=== PATIENT | female | born 2000 | race African-American/Black ===

== ENCOUNTER 2024-09-27 20:25 | Emergency (ER) | payer MEDICAID ==
[~2024-09-27] VITALS: Ht 157.5 cm; Wt 79.0 kg
[2024-09-27 20:39] VITALS: O2SAT 99
[2024-09-27 20:43] VITALS: BP 119/65; PULSE 60; RESP 14; TEMP 36.7; O2SAT 99
[2024-09-28] MEDS ORDERED: FLUC100T PO (16:22)
[2024-09-28] MEDS ORDERED: DOXY100C74 MT (16:25)
== END 2024-09-27 23:33 | disposition left against medical advice (07) ==
LOC: ER 20:33
DX: Z53.21 Procedure and treatment not carried out due to patient leaving prior to being seen by health care provider (principal)

== ENCOUNTER 2024-09-28 13:07 | Emergency (ER) | payer MEDICAID ==
[~2024-09-28] VITALS: Ht 157.5 cm; Wt 79.0 kg
[2024-09-28 13:09] VITALS: PULSE 99; O2SAT 100
[2024-09-28 13:12] VITALS: BP 122/86; RESP 18; TEMP 36.4; O2SAT 99
[2024-09-28] MEDS: CEFTRIAXONE SODIUM 500MG VIAL IM ONE (15:47)
[2024-09-28 15:51] LABS: CLARITY URINE CLEAR (CLEAR); COLOR URINE YELLOW (YELLOW); GLUCOSE URINE NEGATIVE (NEGATIVE); KETONES URINE NEGATIVE (NEGATIVE); LEUKOCYTE ESTERASE URINE 1+ (NEGATIVE); NITRITE URINE NEGATIVE (NEGATIVE); OCCULT BLOOD URINE NEGATIVE (NEGATIVE); PH URINE 5.5 (4.5-8.0); PROTEIN URINE NEGATIVE (NEGATIVE); UROBILINOGEN URINE 0.2 E.U./dL (0.2-1.0)
[2024-09-28] MEDS: DOXYCYCLINE HYCLATE 100MG CAPSULE PO ONE (15:56)
[2024-09-28 16:14] LABS: BACTERIA URINE 1+; RBC URINE 0-2 /hpf (0-2); SQUAMOUS EPITHELIAL CELL URINE 2+ /lpf (RARE/1+); YEAST URINE NONE SEEN
[2024-09-28] MEDS ORDERED: FLUC100T PO (16:22)
[2024-09-28] MEDS ORDERED: DOXY100C74 MT (16:25)
[2024-10-01 04:07] LABS: CHLAMYDIA TRACHOMATIS NAA Negative (Negative); NEISSERIA GONORRHOEAE NAA Negative (Negative)
== END 2024-09-28 17:13 | disposition home or self-care (01) ==
LOC: ER 13:07
DX: N89.8 Other specified noninflammatory disorders of vagina (principal); B37.9 Candidiasis, unspecified
CPT/HCPCS: 99283; 87491; 87591; 81003; 81025; 87210; 96372; J0696